=== PATIENT | female | born 1965 | race Caucasian/White ===

== ENCOUNTER 2016-05-12 14:12 | Emergency (ER) | payer MEDICAID, OTHER ==
[~2016-05-12] VITALS: Ht 154.9 cm; Wt 78.2 kg
[~2016-05-12 14:12] MED LIST: ALBU8.5H5 IH; AMIT10TA6 PO; ATOR20TA38 PO; HYDR-3498 PO; IBUP-1542 PO; MECL12.5 PO; MECL25TA2 PO; NAPR-260 PO
[2016-05-12 14:18] VITALS: Ht 154.9 cm; Wt 78.2 kg
[2016-05-12] MEDS ORDERED: ONDANSETRON (ODT) 4 MG TAB ODT STA (16:22)
[2016-05-12] MEDS ORDERED: MECLIZINE 12.5 MG TAB PO ONE (16:30)
[2016-05-12] MEDS ORDERED: MECL-77 PO (16:30)
[2016-05-12] MEDS ORDERED: ONDA8TAB14 PO (16:30)
[2016-05-12] MEDS ORDERED: FLUT9.9S NASAL (16:32)
--- NOTE | 2016-05-12 16:32 | ERD ---
ER Documentation Chief Complaint Date/Time DATE: 05/12/16 TIME: 16:30 Chief Complaint dizziness today HPI This 51-year-old female presents with a spinning type dizziness with nausea starting today. Is worse when she moves her head. She has history of nasal congestion. Denies any fevers, shortness breath or chest pain. She has no weakness. ROS All systems reviewed and are negative except as per history of present illness. Medications Home Meds Active Scripts Meclizine Hcl* (Meclizine Hcl*) 25 Mg Tablet, 25 MG PO Q8H Y for DIZZINESS, #20 TAB Prov:ALEJANDRA VIEYRA MD 05/12/16 Ondansetron (Ondansetron Odt) 8 Mg Tab.rapdis, 8 MG PO Q6H Y for NAUSEA AND/OR VOMITING, #10 TAB Prov:ALEJANDRA VIEYRA MD 05/12/16 Naproxen* (Naprosyn*) 500 Mg Tablet, 500 MG PO BID for PAIN AND/OR INFLAMMATION , #30 TAB Prov:NANCY TEJADA NP 07/20/15 Amitriptyline Hcl* (Amitriptyline Hcl*) 10 Mg Tablet, 10 MG PO HS, #30 TAB Prov:DEBRA HORTON NP 02/13/15 Hydrocodone Bit-Acetaminophen* ([place]*) 5-325 Mg Tab, 1 TAB PO Q6 Y for PAIN, # 20 TAB Prov:DEBRA HORTON NP 02/13/15 Meclizine Hcl* (Antivert*) 25 Mg Tablet, 25 MG PO Q8 Y for VOMITTING, #14 TAB Prov:TARAS PIRES MD 11/02/14 Reported Medications Meclizine Hcl* (Meclizine Hcl*) Unknown Strength Tablet, PO TID, TAB 02/13/15 Atorvastatin Calcium* (Atorvastatin Calcium*) Unknown Strength Tablet, PO HS, TAB 02/13/15 Ibuprofen* (Motrin*) Unknown Strength Tab, PO Q6H Y for PAIN AND OR ELEVATED TEMP, #30 02/13/15 Atorvastatin Calcium* (Atorvastatin Calcium*) 20 Mg Tablet, 20 MG PO HS, TAB 12/27/13 Albuterol Sulfate* (Albuterol Sulfate* HFA) 8.5 Gm Hfa.aer.ad, 2 PUFF IH BID for WHEEZING AND SOB, EA 12/27/13 Allergies Allergies: Coded Allergies: No Known Drug Allergies (Verified Allergy, Mild, 11/02/14) PMhx/Soc History of Surgery: Yes () Anesthesia Reaction: No Hx Neurological Disorder: No Hx Respiratory Disorders: No Hx Cardiac Disorders: No Hx Psychiatric Problems: No Hx Miscellaneous Medical Probl: Yes (Dyslipidemia,Tinnitus) Hx Alcohol Use: No Hx Substance Use: No Hx Tobacco Use: Yes Smoking Status: Current some day smoker Physical Exam Vitals Vital Signs Date Time Temp Pulse Resp B/P Pulse Ox O2 Delivery O2 Flow Rate FiO2 05/12/16 14:18 97.8 63 18 115/63 99 Physical Exam Const: [] Alert, [id number] per Head: Atraumatic Eyes: Normal Conjunctiva. Eyes are PERRLA and extraocular movements intact. ENT: Normal External Ears, Nose and Mouth. 2+ nasal congestion. Neck: Full range of motion..~ No meningismus. Resp: Clear to auscultation bilaterally Cardio: Regular rate and rhythm, no murmurs Abd: Soft, non tender, non distended. Normal bowel sounds Skin: No petechiae or rashes Back: No midline or flank tenderness Ext: No cyanosis, or edema Neur: Awake and alert. Positive reproducible vertigo to the right. No cerebellar signs. Psych: Normal Mood and Affect Results 24 hrs Current Medications Medications (Trade) Dose Ordered Sig/Les Route PRN Reason Start Time Stop Time Status Last Admin Dose Admin Ondansetron HCl (Zofran Odt) 8 mg ONCE STAT ODT 05/12/16 16:22 05/12/16 16:23 DC Meclizine HCl (Antivert) 25 mg ONCE ONCE PO 05/12/16 16:30 05/12/16 16:31 Procedures/MDM EKG: Rate/Rhythm: [Normal Sinus Rhythm] rate equals 80 QRS, ST, T-waves: [No changes consistent w/ acute ischemia] Impression: [No evidence of ischemia or arrhythmia] impression abnormal EKG Patient has signs and symptoms of benign positional vertigo which is reproducible. Patient was given Zofran 8 mg by mouth and Antivert 25 mg by mouth. Patient has no signs or symptoms of any neurologic deficit or central vertigo. Patient will be treated with Antivert and Zofran and further observation at home. The patient was stable with no new complaints during the ER course. Clinically, there is no current evidence to suggest meningitis, sepsis, acute abdomen, pneumonia, acute coronary syndrome, pulmonary embolism, or any other emergent condition appearing to require further evaluation or hospitalization. The patient should certainly return for any new or worsening symptoms per the aftercare instructions. They should otherwise follow-up with her primary care doctor for reevaluation this week. Departure Diagnosis: Primary Impression: Vertigo Condition: Stable Patient Instructions: Inner Ear Problems: Causes of Dizziness (Vertigo), Benign Positional Vertigo Additional Instructions: Positional vertigo usually resolves after a few days. Recheck for new or worsening symptoms with primary care doctor. ALEJANDRA VIEYRA MD May 12, 2016 16:32
[2016-05-12 16:42] VITALS: BP 115/82; PULSE 72; RESP 18; TEMP 97.9
== END 2016-05-12 16:41 | disposition home or self-care (01) ==
LOC: FTE 14:12
DX: R42 Dizziness and giddiness (principal); R11.0 Nausea; F17.210 Nicotine dependence, cigarettes, uncomplicated
CPT/HCPCS: 93005; Z7502; Z7610; 99283

== ENCOUNTER 2017-10-21 13:43 | Emergency (ER) | END 2017-10-21 16:38 | disposition home or self-care (01) ==

== ENCOUNTER 2018-10-09 18:29 | Emergency (ER) | payer OTHER ==
[~2018-10-09] VITALS: Ht 160 cm; Wt 65.9 kg
[~2018-10-09 18:29] MED LIST changes: +BACL10TA PO; +FLUT9.9S NASAL; +IBUP-1561 PO; +MECL-77 PO; -NAPR-260 PO; +NAPR-985 PO; +ONDA8TAB14 PO
[2018-10-09 18:30] VITALS: Ht 160 cm; Wt 65.9 kg
--- NOTE | 2018-10-09 20:15 | ERD ---
ER Documentation Chief Complaint Chief Complaint DENTAL PAIN, NUMBNESS TO HAND AND ARM HPI 53-year-old female, presents to the emergency department, complaining of dental pain for 3 days. The patient is throbbing, constant, 7/10. No medications taken at this time. She denies fever, no chills, no headache, no nausea or vomiting. The patient has also a diagnosis of carpal tunnel syndrome and is complaining of bilateral wrist pain and nocturnal distal numbness of the third, fourth and fifth digits. ROS All systems reviewed and are negative except as per history of present illness. Medications Home Meds Active Scripts Ibuprofen* (Motrin*) 400 Mg Tab, 400 MG PO Q8, #20 TAB Prov:BRIDGER ADAMES MD 10/09/18 Penicillin V Potassium* (Penicillin V K*) 500 Mg Tab, 500 MG PO QID for 10 Days, TAB Prov:BRIDGER ADAMES MD 10/09/18 Hydrocodone/Acetaminophen ([place] 5-325 Tablet) 1 Each Tablet, 1 TAB PO QHS PRN for PAIN, #7 TAB Prov:BRIGDER ADAMES MD 10/09/18 Baclofen* (Baclofen*) 10 Mg Tablet, 10 MG PO TID for 5 Days, #15 TAB Prov:BRIDGER ADAMES MD 10/21/17 Ibuprofen* (Motrin*) 400 Mg Tab, 400 MG PO Q8, #15 TAB Prov:BRIDGER ADAMES MD 10/21/17 Fluticasone Propionate (Flonase Allergy Relief) 9.9 Ml [place].susp, 1 SPRAY NASAL BID for 10 Days, #1 BOTTLE TO EACH NOSTRIL Prov:ALEJANDRA VIEYRA MD 05/12/16 Meclizine Hcl* (Meclizine Hcl*) 25 Mg Tablet, 25 MG PO Q8H PRN for DIZZINESS, #20 TAB Prov:ALEJANDRA VIEYRA MD 05/12/16 Ondansetron (Ondansetron Odt) 8 Mg Tab.rapdis, 8 MG PO Q6H PRN for NAUSEA AND/OR VOMITING, #10 TAB Prov:ALEJANDRA VIEYRA MD 05/12/16 Naproxen* (Naprosyn*) 500 Mg Tablet, 500 MG PO BID for PAIN AND/OR INFLAMMATION, #30 TAB Prov:MALLORYNANCY Chelo ARIAS 07/20/15 Amitriptyline Hcl* (Amitriptyline Hcl*) 10 Mg Tablet, 10 MG PO HS, #30 TAB Prov:DEBRA HORTON [employer] 02/13/15 Hydrocodone Bit-Acetaminophen* ([place]*) 5-325 Mg Tab, 1 TAB PO Q6 PRN for PAIN, #20 TAB Prov:DEBRA HORTON [employer] 02/13/15 Meclizine Hcl* (Antivert*) 25 Mg Tablet, 25 MG PO Q8 PRN for VOMITTING, #14 TAB Prov:TARAS PIRES MD 11/02/14 Reported Medications Meclizine Hcl* (Meclizine Hcl*) Unknown Strength Tablet, PO TID, TAB 02/13/15 Atorvastatin Calcium* (Atorvastatin Calcium*) Unknown Strength Tablet, PO HS, TAB 02/13/15 Ibuprofen* (Motrin*) Unknown Strength Tab, PO Q6H PRN for PAIN AND OR ELEVATED TEMP, #30 02/13/15 Atorvastatin Calcium* (Atorvastatin Calcium*) 20 Mg Tablet, 20 MG PO HS, TAB 12/27/13 Albuterol Sulfate* (Albuterol Sulfate* HFA) 8.5 Gm Hfa.aer.ad, 2 PUFF IH BID for WHEEZING AND SOB, EA 12/27/13 Allergies Allergies: Coded Allergies: No Known Drug Allergies (Verified Allergy, Mild, 11/02/14) PMhx/Soc History of Surgery: Yes () Anesthesia Reaction: No Hx Neurological Disorder: No Hx Respiratory Disorders: Yes (asthma) Hx Cardiac Disorders: No Hx Psychiatric Problems: No Hx Miscellaneous Medical Probl: Yes (Dyslipidemia,Tinnitus) Hx Alcohol Use: Yes Hx Substance Use: No Hx Tobacco Use: Yes Smoking Status: Current every day smoker Physical Exam Vitals Vital Signs Date Temp Pulse Resp B/P (MAP) Pulse Ox O2 O2 Flow FiO2 Time Delivery Rate 10/09/18 57 16 179/77 99 Room Air 21:13 (111) 10/09/18 97.8 76 18 147/80 99 18:30 (102) Physical Exam Const: No acute distress Head: Atraumatic Eyes: Normal Conjunctiva ENT: Normal External Ears, Nose, poor oral dentition, no evidence of abscesses. Neck: Full range of motion. No meningismus. Resp: Clear to auscultation bilaterally Cardio: Regular rate and rhythm, no murmurs Abd: Soft, non tender, non distended. Normal bowel sounds Skin: No petechiae or rashes Back: No midline or flank tenderness Ext: No cyanosis, or edema Neur: Awake and alert Psych: Normal Mood and Affect Procedures/MDM Differential diagnosis include but not limited to: Dental abscess, parotitis, sialoadenitis, lymphadenopathy, facial abscess. Low suspicion for systemic infection. Physical examination and clinical presentation consistent most likely with dental disease and carpal tunnel syndrome. During the ED course the patient remained stable, no new complaints. Clinical impression discussed with the patient who agrees with management. The patient is stable to be treated outpatient and will be discharged home. Some side effects of prescribed medications (headache, rash, nausea, vomiting, diarrhea, drowsiness, habituation, bleeding, hypertension, interactions with other medications) were reviewed. The patient was instructed to follow up with the primary care provider and dentist in the next 48h. If symptoms persist, worsen or new symptoms develop, then patient should return to the ED immediately. Instructions explained and given directly by me to the patient with acknowledgment and demonstrated understanding. Disclaimer: Inadvertent spelling and grammatical errors are likely due to EHR/dictation software use and do not reflect on the overall quality of patient care. Also, please note that the electronic time recorded on this note does not necessarily reflect the actual time of the patient encounter. Departure Diagnosis: Primary Impression: Tooth disease Additional Impression: Carpal tunnel syndrome, bilateral Condition: Stable Additional Instructions: Thank you very much for allowing us to participate in your care. Your health and safety is our top priority at [facility]. The evaluation in the emergency department has been done to rule out an acute emergency. Chronic, bal-zuxr-[id number] conditions may have not been evaluated; therefore, you need to follow up with a primary care provider in the next 48h. If symptoms persist, worsen or new symptoms develop, then patient should return to the ED immediately. Call your primary care doctor TOMORROW for an appointment during the next 2-4 days and bring all the information provided. Have prescriptions filled and follow precisely the directions on the label. If the symptoms get worse and your provider is unavailable, return to the Emergency Department immediately. BRIDGER ADAMES MD Oct 09, 2018 20:15
[2018-10-09] MEDS ORDERED: PENI500T PO (20:16)
[2018-10-09] MEDS ORDERED: HYDR-4011 PO (20:16)
[2018-10-09] MEDS ORDERED: IBUP-1561 PO (20:16)
[2018-10-09 21:13] VITALS: BP 179/77; PULSE 57; RESP 16
== END 2018-10-09 21:14 | disposition home or self-care (01) ==
LOC: FTE 18:29
DX: K08.9 Disorder of teeth and supporting structures, unspecified (principal); G56.03 Carpal tunnel syndrome, bilateral upper limbs; J45.909 Unspecified asthma, uncomplicated; F17.210 Nicotine dependence, cigarettes, uncomplicated
CPT/HCPCS: 99283

== ENCOUNTER 2018-11-29 08:15 | Emergency (ER) | payer OTHER ==
[~2018-11-29] VITALS: Ht 160 cm; Wt 72.0 kg
[~2018-11-29 08:15] MED LIST changes: +BEN25 PO; +HC30CR25 TOP; +HYDR-4011 PO; +PENI500T PO
[2018-11-29 08:18] VITALS: BP 122/70; PULSE 89; RESP 16; Ht 160 cm; Wt 72.0 kg
[2018-11-29] MEDS ORDERED: DIPHENHYDRAMINE 25 MG CAP PO ONE (09:00)
== END 2018-11-29 08:43 | disposition home or self-care (01) ==
LOC: FTE 08:15
DX: S60.561A Insect bite (nonvenomous) of right hand, initial encounter (principal); J45.909 Unspecified asthma, uncomplicated; F17.210 Nicotine dependence, cigarettes, uncomplicated; W57.XXXA Bitten or stung by nonvenomous insect and other nonvenomous arthropods, initial encounter; Y92.9 Unspecified place or not applicable
CPT/HCPCS: Z7502; Z7610; 99283